=== PATIENT | male | born 1970 | race African-American/Black ===

== ENCOUNTER 2018-10-26 21:31 | Emergency (ER) | payer OTHER ==
[~2018-10-26] VITALS: Ht 180.3 cm; Wt 99.8 kg
[2018-10-26 22:01] LABS: BASO # 0.1 x10^3/uL (0.0-0.2); BASO % 1 % (0-3); EOS # 0.1 x10^3/uL (0.0-0.7); EOS % 2 % (0-3); HEMOGLOBIN 13.2 g/dL (13.0-17.5); LYMPH # 1.8 x10^3/uL (1.0-4.8); LYMPH % 28 % (24-48); MEAN CORPUSCULAR HEMOGLOBIN 31 pg (25-35); MEAN CORPUSCULAR HGB CONC 35 g/dL (31-37); MEAN CORPUSCULAR VOLUME 88 fL (79-100); MONO # 0.4 x10^3/uL (0.0-1.1); MONO % 7 % (0-9); NEUT # 4.1 x10^3uL (1.8-7.7); NEUT % 63 % (31-73); PLATELET COUNT 215 x10^3/uL (140-400); RED CELL DISTRIBUTION WIDTH 15.5 % (11.5-14.5); WHITE BLOOD COUNT 6.5 x10^3/uL (4.0-11.0)
[2018-10-26 22:09] LABS: BILIRUBIN,URINE NEGATIVE (NEG); CLARITY,URINE CLEAR; COLOR,URINE YELLOW; NITRITE,URINE NEGATIVE (NEG); PROTEIN,URINE NEGATIVE (NEG-TRACE); UROBILINOGEN,URINE 0.2 mg/dL (0.2 mg/dL)
[2018-10-26 22:12] LABS: CALCIUM 8.7 mg/dL (8.5-10.1); CREATININE 1.3 mg/dL (0.7-1.3); GFR 58.4; POTASSIUM 3.9 mmol/L (3.5-5.1)
[2018-10-26 22:17] LABS: BACTERIA,URINE 0 /HPF (0-FEW); RBC,URINE OCC /HPF (0-2); WBC,URINE 0 /HPF (0-4)
[2018-10-26 22:20] LABS: ALBUMIN 3.6 g/dL (3.4-5.0); TOTAL BILIRUBIN 0.7 mg/dL (0.2-1.0); TOTAL PROTEIN 7.2 g/dL (6.4-8.2)
--- NOTE | 2018-10-26 22:59 | RAD ---
CT scan of the head without contrast 10/26/2018 Clinical History: Dizziness. Technique: Unenhanced, contiguous, 5 mm axial sections were obtained through the head. One or more of the following individualized dose reduction techniques were utilized for this study: 1. Automated exposure control. 2. Adjustment of the mA and/or kV according to patient size. 3. Use of iterative reconstruction technique. Findings: The ventricles and sulci are within normal limits in size and configuration. No focal area of abnormal attenuation is seen involving the brain parenchyma. No extra-axial fluid collection is seen. No skull fracture is seen. Impression: Negative study. Electronically signed by: Elpidio Ware MD (10/26/2018 10:56 PM) [facility]
--- NOTE | 2018-10-26 23:19 | RAD ---
AP portable chest radiograph 10/26/2018 Clinical History: Unexplained dizziness. An AP erect portable digital radiograph of the chest was obtained. Comparison study is dated 07/01/2011. The cardiac silhouette is borderline enlarged. The thoracic aorta is mildly tortuous. No acute pulmonary infiltrate is seen. No pleural effusion or pneumothorax is noted. The osseous structures are grossly intact. Impression: No acute abnormality is seen. Electronically signed by: Elpidio Ware MD (10/26/2018 11:16 PM) [facility]
[2018-10-26 23:30] VITALS: BP 164/89
--- NOTE | 2018-10-26 23:35 | PHYS DOC ---
Past Medical History Past Medical History: Asthma, Bronchitis Past Surgical History: Other Additional Past Surgical Histo: TESTICULAR TORSION REPAIR Alcohol Use: None Drug Use: None Adult General Chief Complaint Chief Complaint: DIZZY/LIGHT HEADED HPI HPI Patient is a 48 year old -[place] male with history of hypertension who presents with dizziness while sitting. Patient states symptoms began several hours prior to arrival while working on the computer. Denies headache, blurred vision, chest pain palpitations. Denies vertigo, nausea, vomiting, and neck pain. No focal extremity weakness or loss of sensation. Patient states felt as though he would pass out if he stood. Symptoms were improved with sitting. Patient states he checked his blood pressure which was 170/102. Patient is p rescribed amlodipine but does not take on a routine her daily basis. Patient did take one dose of amlodipine prior to ED arrival. States symptoms continue been overall have improved and that he has had prior episodes of dizziness. No other acute symptoms or complaints. [] Review of Systems Review of Systems Review symptoms as per history of present illness. All other review symptoms are negative. All other systems were reviewed and found to be within normal limits, except as documented in this note. Allergies Allergies Allergies Coded Allergies Type Severity Reaction Last Updated Verified No Known Drug Allergies 10/26/18 No Physical Exam Physical Exam Constitutional: Well developed, well nourished, no acute distress, non-toxic appearance. [] HENT: Normocephalic, atraumatic, bilateral external ears normal, oropharynx moist, no oral exudates, nose normal. [] Eyes: PERRLA, EOMI, conjunctiva normal, no discharge. [] Neck: Normal range of motion, no tenderness, supple, no stridor. [] Cardiovascular:Heart rate regular rhythm, no murmur [] Lungs & Thorax: Bilateral breath sounds clear to auscultation [] Abdomen: Bowel sounds normal, soft, no tenderness. [] Skin: Warm, dry, no erythema, no rash. [] Back: No tenderness, no CVA tenderness. [] Extremities: No tenderness, no cyanosis, no clubbing, ROM intact, no edema. [] Neurologic: Alert and oriented X 3, normal motor function, normal sensory function, no focal deficits noted. [] Psychologic: Affect normal, judgement normal, mood normal. [] Current Patient Data Vital Signs Vital Signs Date Time Temp Pulse Resp B/P (MAP) Pulse Ox O2 Delivery O2 Flow Rate FiO2 10/26/18 21:40 98.6 85 18 172/109 (130) 99 Room Air 98.6 Lab Values Laboratory Tests Test 10/26/18 21:50 10/26/18 22:00 White Blood Count 6.5 x10^3/uL (4.0-11.0) Red Blood Count 4.30 x10^6/uL (4.30-5.70) Hemoglobin 13.2 g/dL (13.0-17.5) Hematocrit 38.0 % (39.0-53.0) L Mean Corpuscular Volume 88 fL (79-100) Mean Corpuscular Hemoglobin 31 pg (25-35) Mean Corpuscular Hemoglobin Concent 35 g/dL (31-37) Red Cell Distribution Width 15.5 % (11.5-14.5) H Platelet Count 215 x10^3/uL (140-400) Neutrophils (%) (Auto) 63 % (31-73) Lymphocytes (%) (Auto) 28 % (24-48) Monocytes (%) (Auto) 7 % (0-9) Eosinophils (%) (Auto) 2 % (0-3) Basophils (%) (Auto) 1 % (0-3) Neutrophils # (Auto) 4.1 x10^3uL (1.8-7.7) Lymphocytes # (Auto) 1.8 x10^3/uL (1.0-4.8) Monocytes # (Auto) 0.4 x10^3/uL (0.0-1.1) Eosinophils # (Auto) 0.1 x10^3/uL (0.0-0.7) Basophils # (Auto) 0.1 x10^3/uL (0.0-0.2) Sodium Level 139 mmol/L (136-145) Potassium Level 3.9 mmol/L (3.5-5.1) Chloride Level 105 mmol/L (98-107) Carbon Dioxide Level 26 mmol/L (21-32) Anion Gap 8 (6-14) Blood Urea Nitrogen 8 mg/dL (8-26) Creatinine 1.3 mg/dL (0.7-1.3) Estimated GFR (Cockcroft-Gault) 58.4 BUN/Creatinine Ratio 6 (6-20) Glucose Level 103 mg/dL (70-99) H Calcium Level 8.7 mg/dL (8.5-10.1) Total Bilirubin 0.7 mg/dL (0.2-1.0) Aspartate Amino Transferase (AST) 18 U/L (15-37) Alanine Aminotransferase (ALT) 31 U/L (16-63) Alkaline Phosphatase 53 U/L (46-116) Troponin I Quantitative < 0.017 ng/mL (0.000-0.055) Total Protein 7.2 g/dL (6.4-8.2) Albumin 3.6 g/dL (3.4-5.0) Albumin/Globulin Ratio 1.0 (1.0-1.7) Thyroid Stimulating Hormone (TSH) 1.753 uIU/mL (0.358-3.74) Urine Collection Type Unknown Urine Color Yellow Urine Clarity Clear Urine pH 6.0 Urine Specific [place] 1.015 Urine Protein Negative mg/dL (NEG-TRACE) Urine Glucose (UA) Negative mg/dL (NEG) Urine Ketones (Stick) Negative mg/dL (NEG) Urine Blood Negative (NEG) Urine Nitrite Negative (NEG) Urine Bilirubin Negative (NEG) Urine Urobilinogen Dipstick 0.2 mg/dL (0.2 mg/dL) Urine Leukocyte Esterase Negative (NEG) Urine RBC Occ /HPF (0-2) Urine WBC 0 /HPF (0-4) Urine Bacteria 0 /HPF (0-FEW) Laboratory Tests 10/26/18 21:50 Laboratory Tests 10/26/18 21:50 EKG EKG [EKG: reviewed] Radiology/Procedures Radiology/Procedures [CT head: No acute disease per radiology report Chest x-ray: No pulmonary infiltrate.] Course & Med Decision Making Course & Med Decision Making Pertinent Labs and Imaging studies reviewed. (See chart for details) [Dizziness improved with blood pressure control. CT, lab and EKG nondiagnostic. Blood pressure 130s over 80s prior to discharge. Recommend compliance with home blood pressure medication and close monitoring and PCP follow-up. Return precautions reviewed. Patient verbalizes understanding agreement discharge instructions prior to departure.] Dragon Disclaimer Dragon Disclaimer This electronic medical record was generated, in whole or in part, using a voice recognition dictation system. Departure Departure Impression: Primary Impression: Hypertension Additional Impression: Dizziness Disposition: HOME/RESIDENCE PRIOR TO ADM Condition: GOOD Patient Instructions: Dizziness, [id number], Hypertension Additional Instructions: You were evaluated in the emergency department for dizziness and hypertension. CT EKG and lab work were performed and are nondiagnostic. Please take next dose of your blood pressure medication in the morning and then continue to take daily. Check blood pressure prior to bedtime and follow-up with your PCP in the office next week for reevaluation. In the meantime if you develop new or worsening symptoms return to the ED. Problem Qualifiers NARESH LUNDBERG DO Oct 26, 2018 23:35
--- NOTE | 2018-10-27 15:33 | EKG ---
[facility] [address] [place] [address] Test Date: 2018-10-26 Test Time: 21:43:35 Pat Name: CECELIA MEZA Department: Room: Gender: M Archivist: : 1970 Requested By: NARESH LUNDBERG Order Number: [id number] Reading MD: Measurements Intervals [place] Rate: 80 P: 36 OR: 164 QRS: 41 QRSD: 90 T: 5 QT: 312 QTc: 363 Interpretive Statements SINUS RHYTHM NORMAL ECG RI6.01 Unconfirmed report No previous ECG available for comparison
== END 2018-10-26 23:40 | disposition home or self-care (01) ==
LOC: ER 21:31
DX: I10 Essential (primary) hypertension (principal); R42 Dizziness and giddiness; J45.909 Unspecified asthma, uncomplicated
CPT/HCPCS: 36415; 70450; 71045; 80053; 81001; 84443; 84484; 85025; 93005; 99285-25